=== PATIENT | female | born 1985 | race Caucasian/White ===

== ENCOUNTER → 2020-10-11 | Outpatient (CLI) | payer OTHER ==
[~2020-10-11] MED LIST: IBU600 MG PO; LEXAPRO 10MG10 MG PO; PRENATAL
== END | disposition still patient (30) ==
LOC: ZCOL.LAB
DX: Z20.822 Contact with and (suspected) exposure to COVID-19 (principal)

== ENCOUNTER 2020-10-12 20:55 | Inpatient (IN) | payer OTHER ==
[~2020-10-12] VITALS: Ht 160 cm; Wt 85.5 kg
[2020-10-12] MEDS ORDERED: LEXAPRO 10MG10 MG PO (21:29)
[2020-10-12] MEDS ORDERED: PRENATAL (21:29)
[2020-10-12 21:45] VITALS: BP 132/83; PULSE 109
[2020-10-12 22:32] LABS: BASO % 0.2 % (0.0-2.0); EOS # 0.1 (0.0-0.7); EOS % 0.6 % (0-4.0); GRAN # 10.1 (1.4-6.5); GRAN % 75.2 % (42.2-75.2); HEMOGLOBIN 11.5 g/dl (12.5-16.0); LYMPH % 15.2 % (20.0-51.0); MEAN CELL VOLUME 88 fl (80.0-100.0); MEAN CORPUSCULAR HEMOGLOBIN 30 pg (27.0-31.0); MEAN CORPUSCULAR HGB CONC 34 g/dl (33.0-37.0); MEAN PLATELET VOLUME 11.6 fl (7.4-10.4); MONO # 1.1 (0.1-0.6); MONO % 8.3 % (1.7-9.3); PLATELET COUNT 222 K/mm3 (130-400); REDCELL DISTRIBUTION WIDTH-CV 13.3 % (11.5-14.5)
[2020-10-12 22:33] LABS: HEMATOCRIT 33.5 % (37.0-47.0)
[2020-10-13] VITALS (47 sets, daily range): BP systolic 91–142; BP diastolic 50–79; PULSE 67–116; TEMP 97.7–99.1
[2020-10-14 04:00] VITALS: BP 106/64; PULSE 96; TEMP 98.4
[2020-10-14 08:00] VITALS: BP 116/65; PULSE 88; TEMP 98.4
[2020-10-14] MEDS ORDERED: IBU600 MG PO (12:08)
[2020-10-14 16:09] VITALS: BP 111/63; PULSE 91; TEMP 97.9
[2020-10-14 19:05] VITALS: BP 100/59; PULSE 60; TEMP 98.3
[2020-10-15 02:00] VITALS: BP 115/70; PULSE 72; TEMP 98.3
[2020-10-15 07:52] VITALS: BP 106/74; PULSE 83; TEMP 97.8
== END 2020-10-15 13:50 | disposition home or self-care (01) | DRG 807 ==
LOC: LDRO 20:55 → LDR 21:45 → OB 21:45
PROVIDERS: ADMIT Student in an Organized Health Care Education/Training Program
PROC: 10D07Z6 Extraction of Products of Conception, Vacuum, Via Natural or Artificial Opening (ICD-10-PCS; principal; 2020-10-12)
PROC: 0HQ9XZZ Repair Perineum Skin, External Approach (ICD-10-PCS; 2020-10-12)
PROC: 0UQGXZZ Repair Vagina, External Approach (ICD-10-PCS; 2020-10-12)
DX: O99.344 Other mental disorders complicating childbirth (principal); Z37.0 Single live birth; F41.9 Anxiety disorder, unspecified; O70.0 First degree perineal laceration during delivery; O62.2 Other uterine inertia; Z3A.38 38 weeks gestation of pregnancy
CPT/HCPCS: J2210; J2405; J2590; J7120

== ENCOUNTER → 2020-10-16 | Outpatient (CLI) | payer OTHER ==
--- NOTE | 2020-10-16 17:28 | NUR ---
Pt, Patrica Longo, presents for outpatient consult with 3 day old baby girl, Adry Longo. She is accompanied by her spouse, Rafal, as well. Adry's weight is reoprted to be down by 9%, and she had her bilirubin checked prior to this appt. Adry was born on 10/13/2020 and weighed 7# 7.9oz (3450 gms). Discharge weight on 10/15/2020 was 7# 1oz. Adry was seen by Dr. Rhoades today and referred for a evalution because her weight was 6# 15.1oz. At this appointment Adry weighed 6#15.1oz (3150 gms) for an 8.7% loss from . Pt reports Adry has had 4 concentrated voids and no stools in the last 24 hours. She has recieved a total of 2.5oz formula for supplement since last night and this morning. Pt has not pumped. Adry is fussy at the breast, not wanting to latch quickly. LC places a few gtts of formula on her tongue and assists pt in bringer her over the nipple a little faster and Adry latches and nurses well. After bilaterally Adry had a weight gain of 2.5oz (70 gms). She has a little spit up as well. Report of bilirubin recieved from staff nurse, WNL and Adry does not need to have a repeat done. POC: Breastfeed as often as Adry will, trying to get at least 8 feedings per 24 hours. May use gtts of formula or EBM to get her started. If Adry does not latch after a few minutes of trying, give her a few swallows from a bottle, then present the breast again, or bottle feed 1-1.5oz. Follow with pumping and use EBM as needed for supplement. F/U: Pt advised to contact Dr. Rhoades's office for follow up weight check. Questions invited and answered.
== END ==
LOC: LAC
DX: Z39.1 Encounter for care and examination of lactating mother (principal); Z71.89 Other specified counseling

== ENCOUNTER 2022-04-23 12:11 | Emergency (ER) | payer OTHER ==
[~2022-04-23] VITALS: Ht 160 cm; Wt 75.0 kg
[2022-04-23 12:48] VITALS: TEMP 98.3
[2022-04-23 13:05] LABS: COLLECTION METHOD CLEAN CATCH
[2022-04-23 13:23] LABS: SQUAMOUS EPITHELIAL 0-2 /hpf (0-10); URINE BACTERIA Rare /hpf (NONE SEEN); URINE RBC 0-2 /hpf (0-2)
[2022-04-23 13:24] LABS: PH 6.5 (5.0-8.5); URINE APPEARANCE Clear (CLEAR/HAZY); URINE BLOOD TRACE-INTACT (NEGATIVE); URINE COLOR Yellow (YELLOW); URINE GLUCOSE Negative (NEGATIVE); URINE KETONE Negative (NEGATIVE); URINE NITRATE Negative (NEGATIVE); URINE PROTEIN(semi-quant) Negative (NEGATIVE); URINE UROBILINOGEN 0.2 E.U/dL (0.2-1.0)
[2022-04-23 13:30] LABS: BASO % 0.6 % (0.0-2.0); EOS # 0.1 K/mm3 (0.0-0.7); EOS % 1.5 % (0.0-4.0); GRAN # 2.8 K/mm3 (1.4-6.5); GRAN % 52.7 % (42.2-75.2); HEMATOCRIT 38.9 % (37.0-47.0); HEMOGLOBIN 12.9 g/dl (12.5-16.0); LYMPH % 37.5 % (20.0-51.0); MEAN CELL VOLUME 83 fl (80.0-100.0); MEAN CORPUSCULAR HEMOGLOBIN 28 pg (27-31); MEAN CORPUSCULAR HGB CONC 33 g/dl (33.0-37.0); MEAN PLATELET VOLUME 9.4 fl (7.4-10.4); MONO # 0.4 K/mm3 (0.1-0.6); MONO % 7.5 % (1.7-9.3); PLATELET COUNT 248 K/mm3 (130-400); RED BLOOD COUNT 4.67 M/mm3 (4.10-5.30); REDCELL DISTRIBUTION WIDTH-CV 12.6 % (11.5-14.5)
[2022-04-23 14:37] VITALS: BP 100/65; PULSE 68
== END 2022-04-23 14:37 | disposition home or self-care (01) ==
LOC: COL.ER 12:11
PROVIDERS: Physician Assistant
DX: R42 Dizziness and giddiness (principal); T45.1X5A Adverse effect of antineoplastic and immunosuppressive drugs, initial encounter
CPT/HCPCS: J7030